=== PATIENT | male | born 1950 | race African-American/Black ===

== ENCOUNTER 2016-12-17 09:18 | Emergency (ER) | payer OTHER ==
[2016-12-17] MEDS ORDERED: BP MED PO (10:32)
[2016-12-17 11:30] LABS: BASO % 0.4 % (0-2); EOS % 1.9 % (0-7); EOSINOPHIL ABSOLUTE COUNT 0.1 tho/cmm (0.0-0.7); HCT-HEMATOCRIT 37.8 % (36.0-53.5); HGB-HEMOGLOBIN 11.6 gm/dl (13.5-17.0); LYMPH % 18.5 % (20-45); LYMPH ABSOLUTE COUNT 1.3 tho/cmm (0.8-4.5); MCH (MEAN CORPUSCULAR HGB) 26.9 pg (28.0-32.0); MCHC MEAN CORPUSCULAR HGB CONC 30.7 % (32.0-36.0); MCV (MEAN CELL VOLUME) 87.7 fl (82.0-96.0); MEAN PLATELET VOLUME 10.4 cmc (9.4-12.4); MONO % 7.4 % (0-12); MONOCYTE ABSOLUTE COUNT 0.5 tho/cmm (0.0-1.2); NEUTROPHILS % 71.8 % (40-80); PLATELET COUNT 333 tho/cmm (150-450); RED BLOOD COUNT 4.31 mil/cmm (4.40-5.70); RED CELL DISTRIBUTION WIDTH 16.3 % (12.4-16.4)
[2016-12-17 11:45] LABS: ALB/GLOB RATIO 0.6 (0.8-2.0); ALBUMIN 2.7 g/dl (3.5-5.0); ALKALINE PHOSPHATASE 87 U/L (33-138); ALT/SGPT 32 U/L (12-78); ANION GAP 16 mmol/L (0-20); AST/SGOT 37 U/L (10-40); BILIRUBIN,TOTAL 0.3 mg/dl (0.0-1.5); BLOOD UREA NITROGEN 52 mg/dl (6-24); CALCIUM 8.5 mg/dl (8.5-10.5); CARBON DIOXIDE-VENOUS 24 mmol/L (22-32); CHLORIDE 109 mmol/l (96-110); CREATININE 7.35 mg/dl (0.60-1.30); GLUCOSE 172 mg/dL (70-110); MAGNESIUM 1.9 mg/dl (1.8-2.6); PHOSPHOROUS 3.5 mg/dl (2.5-4.9); POTASSIUM 4.4 mmol/L (3.7-5.1); SODIUM 145 mmol/L (135-145); eGFR VALUE FOR BLACK 8 mL/Min
[2016-12-17] MEDS ORDERED: ZYLOPRIM300 M1 PO (12:10)
[2016-12-17] MEDS ORDERED: CALCIUM ACETAT667 M2 PO (12:11)
[2016-12-17] MEDS ORDERED: ASPIRIN EC325 M1 PO (12:11)
[2016-12-17] MEDS ORDERED: LIPITOR40 M1 PO (12:11)
[2016-12-17] MEDS ORDERED: TIAZAC PO (12:13)
[2016-12-17] MEDS ORDERED: FOLIC ACID1 M1 PO (12:13)
[2016-12-17] MEDS ORDERED: LASIX40 M1 PO (12:13)
[2016-12-17] MEDS ORDERED: NEURONTIN300 M1 PO ×2 (12:15)
[2016-12-17] MEDS ORDERED: HYDRALAZINE HC100 M1 PO (12:16)
[2016-12-17] MEDS ORDERED: ISOSORBIDE MONO60 M3 PO (12:16)
[2016-12-17] MEDS ORDERED: LACTULOSE10 GM/155 PO (12:17)
[2016-12-17] MEDS ORDERED: NITROGLYCERIN0.4 M2 SL (12:18)
[2016-12-17] MEDS ORDERED: OMEPRAZOLE20 M3 PO (12:19)
[2016-12-17] MEDS ORDERED: [UNRECOGNIZED DRUG - OTHER] PO (12:20)
[2016-12-17] MEDS ORDERED: PROPRANOLOL HCL40 M2 PO (12:20)
[2016-12-17] MEDS ORDERED: VITAMIN D-32000 UNI4 PO (12:21)
[2016-12-17] MEDS ORDERED: DIPHENHYDR50 MG/1 M2 IV (12:22)
[2016-12-17] MEDS ORDERED: FERRIC GLUCONATE IV (12:24)
[2016-12-17] MEDS ORDERED: NOVOLIN N100 UNIT/2 SC ×2 (12:27)
[2016-12-17] MEDS ORDERED: NOVOLIN R100 UNIT/1 SC ×2 (12:28→12:30)
== END 2016-12-17 13:11 ==
LOC: EDMED 09:18
PROVIDERS: Physician Assistant
DX: E11.22 Type 2 diabetes mellitus with diabetic chronic kidney disease (principal); I12.9 Hypertensive chronic kidney disease with stage 1 through stage 4 chronic kidney disease, or unspecified chronic kidney disease; N18.9 Chronic kidney disease, unspecified; Z99.2 Dependence on renal dialysis; Z86.73 Personal history of transient ischemic attack (TIA), and cerebral infarction without residual deficits; Z79.4 Long term (current) use of insulin; Z79.899 Other long term (current) drug therapy